=== PATIENT | female | born 1975 | race Two or more races ===

== ENCOUNTER 2025-08-11 17:47 | Inpatient (IN) | payer BC, OTHER ==
[~2025-08-11] VITALS: Ht 157.5 cm; Wt 77.7 kg
[2025-08-11] VITALS (7 sets, daily range): BP systolic 93–103; BP diastolic 48–58; PULSE 71–89; RESP 12–18; TEMP 98.1–98.7; O2SAT 95–100
--- NOTE | 2025-08-11 18:03 | ECG ---
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
[2025-08-11] MEDS: HEPARIN SODIUM (PORCINE) 5000 UNITS/ML 1ML VIAL IV ONE (18:04)
[2025-08-11] MEDS: HEPARIN SODIUM (PORCINE) 5000 UNITS/ML 1ML VIAL ONE (18:07)
[2025-08-11] MEDS: LIDOCAINE 2%HCL (LOCAL ANESTH.) INJ 20ML MDV ONE (18:20)
[2025-08-11] MEDS: fentaNYL CITRATE 100 MCG/2 ML VL ONE (18:20)
[2025-08-11] MEDS: MIDAZOLAM HCL 2MG/2ML 2ml VIAL (1mg/ml) ONE (18:20)
[2025-08-11] MEDS: ANGIOMAX 250 MG VIAL IV ONE (18:20)
[2025-08-11] MEDS: SODIUM CHL 0.9% 50 ML ONE (18:20)
[2025-08-11] MEDS: IODIXANOL 320MG/ML 100ML BTL IV ONE ×2 (18:21→19:12)
[2025-08-11] MEDS: methylPREDNISolone SOD SUCC 125 MG/2 ML VL ONE (18:57)
[2025-08-11] MEDS: FAMOTIDINE (10MG/ML) 2ML VL IV ONE (18:58)
[2025-08-11] MEDS: diphenhdrAMINE HCL 50 MG/1 ML VL ONE (18:58)
[2025-08-11] MEDS: VERAPAMIL 2.5MG/ML INJ 2ML VIAL IV ONE (19:05)
[2025-08-11] MEDS ORDERED: MORPHINE SULFATE INJ 2 MG/ml SYRG IV PRN (19:30)
[2025-08-11] MEDS ORDERED: ZOLPIDEM TARTRATE 5 MG TAB PO PRN (19:30)
[2025-08-11] MEDS ORDERED: ONDANSETRON HCL 4 MG/2 ML VIAL IV PRN (19:30)
[2025-08-11] MEDS ORDERED: NITROGLYCERIN 0.4 MG SL TAB SL PRN ×2 (19:30)
[2025-08-11] MEDS ORDERED: MORPHINE SULFATE 4 MG/ML SYR/VIAL IV PRN (19:30)
[2025-08-11] MEDS ORDERED: LORazepam 0.5 MG TAB PO PRN (19:30)
[2025-08-11] MEDS ORDERED: ACETAMINOPHEN 500 MG TAB or CAP PO PRN (19:30)
--- NOTE | 2025-08-11 19:47 | ED.PDOC ---
History of Present Illness HPI Comments 49-year-old female brought by paramedics from urgent care because she had abnormal cardiac rhythm. She went to urgent care because she has been having diarrhea for the past four days. States that she possibly had something bad to eat which started the symptoms. She denies any chest pain shortness a breath. Denies any past medical history. Denies any other symptoms Chief Complaint: Abnormal LAB's Time Seen by MD: 17:59 Reviewed Notes: Nurses Notes, Medications, Allergies Allergies: Coded Allergies: Ciprofloxacin (Verified Allergy, Mild, 08/11/25) stomach upset Erythromycin (Verified Allergy, Mild, 08/11/25) stomach upset Information Source: Patient, Emergency Med Personnel Mode of Arrival: EMS Severity: Moderate Timing: Days Duration: Since onset Past Medical History PAST MEDICAL HISTORY: Denies Surgical History: Denies all surgeries PSYCHODRAMATIST History: No Pertinent PSYCHODRAMATIST History Social History Smoker: Non-Smoker Alcohol: Denies ETOH Use Drugs: Denies Drug Use Constitutional: denies: chills, diaphoresis, fatigue, fever, malaise, sweats, weakness, others EENTM: denies: blurred vision, double vision, ear bleeding, ear discharge, ear drainage, ear pain, ear ringing, eye pain, eye redness, hearing loss, mouth pain, mouth swelling, nasal discharge, nose bleeding, nose congestion, nose pain, photophobia, tearing, throat pain, throat swelling, voice changes, others Respiratory: denies: cough, hemoptysis, orthopnea, SOB at rest, shortness of breath, SOB with excertion, stridor, wheezing, others Cardiovascular: denies: chest pain, dizzy spells, diaphoresis, Dyspnea on exertion, edema, irregular heart beat, left arm pain, lightheadedness, palpitations, PND, syncope, others Gastrointestinal: reports: diarrhea; denies: abdomen distended, abdominal pain, blood streaked bowels, constipated, dysphagia, difficulty swallowing, hematemes is, melena, nausea, poor appetite, poor fluid intake, rectal bleeding, rectal pain, vomiting, others Genitourinary: denies: abnormal vagina bleeding, burning, dyspareunia, dysuria, flank pain, frequency, hematuria, incontinence, pain, , vagina discharge, urgency, others Neurological: denies: dizziness, fainting, headache, left sided numbness, left sided weakness, numbness, paresthesia, pre-existing deficit, right sided numbness, right sided weakness, seizure, speech problems, tingling, tremors, weakness, others Musculoskeletal: denies: back pain, gout, joint pain, joint swelling, muscle pain, muscle stiffness, neck pain, others Integumetry: denies: bruises, change in color, change in hair/nails, dryness, laceration, lesions, lumps, rash, wounds, others Allergic/Immunocompromised: denies: Difficulty Healing, Frequent Infections, Hives, Itching, others Hematologic/Lymphatic: denies: anemia, blood clots, easy bleeding, easy bruising, swollen glands, others Endocrine: denies: excessive hunger, excessive sweating, excessive thirst, excessive urination, flushing, intolerance to cold, intolerance to heat, un explained weight gain, unexplained weight loss, others Psychiatric: denies: anxiety, bipolar disorder, depression, hopeless, panic disorder, schizophrenia, sleepless, suicidal, others Physical Exam General Appearance: Moderate Distress HEENT: Normal ENT Inspection, Pharynx Normal, TMs Normal Neck: Full Range of Motion, Non-Tender, Normal, Normal Inspection Respiratory: Chest Non-Tender, Lungs Clear, No Accessory Muscle Use, No Respiratory Distress, Normal Breath Sounds Cardiovascular: No Edema, No JVD, No Murmur, No Gallop, Normal Peripheral Pulses, Regular Rate/Rhythm Breast Exam: Deferred Gastrointestinal: No Organomegaly, Non Tender, No Pulsatile Mass, Normal Bowel Sounds, Soft Genitalia: Deferred Pelvic: Deferred Rectal: Deferred Extremities: No calf tenderness, Normal capillary refill, Normal inspection, Normal range of motion, Non-tender, No pedal edema Musculoskeletal : Apperance: Normal 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 Was a procedure done?: No EKG EKG : ST: Inf Differential Dx Considerations may include: STEMI Gastroenteritis X-Ray, Labs, Meds, VS Vital Signs Date Time Temp Pulse Resp B/P (MAP) Pulse Ox O2 Delivery O2 Flow Rate FiO2 08/11/25 17:54 89 08/11/25 17:50 98.5 88 16 122/78 (93) 97 98.5 08/11/25 17:50 Room Air* 0 21 08/11/25 17:48 98.5 88 16 122/78 97 98.5 Lab Test 08/11/25 17:53 Range/Units Troponin I High Sensitivity Pending Current Medications Medications (Trade) Dose Ordered Sig/Dawna Route Start Time Stop Time Status Last Admin Heparin Sodium (Porcine) 5,000 units ONCE ONCE IV 08/11/25 18:15 08/11/25 18:16 DC 08/11/25 18:04 Patient alert. Vitals stable. Cardiac rhythm from the paramedics with a abnormal. Answering questions. EKGs shows changes in the inferior lead. Was given heparin. Cardiology consulted. Was taken to cardiac cath lab radiology technologist. Explained to the patient. Continue monitoring. Time of 1ST Reevaluation: 19:45 Reevaluation 1ST: Unchanged Patient Education/Counseling: Diagnosis, Treatment, Prognosis Family Education/Counseling: No Family Present SEPSIS Sepsis Screen Date sepsis recognized/suspect: Aug 11, 2025 Time Sepsis recognized/suspect: 1805 Recent Procedure: No On Antibiotic Therapy: No Respiratory Rate >20: No Heart Rate >90: No Temp<36 C (96.8 F) or >38.3 C: No SBP <90 or MAP <65 mmHG: No New Acute Mental Status Change: No Is the patient on CPAP, BIPAP,: No Physician Orders Urinalysis (08/11/25 17:57) Cl Left Heart Cath (08/11/25 18:12) Vital Signs Date Time Temp Pulse Resp B/P (MAP) Pulse Ox O2 Delivery O2 Flow Rate FiO2 08/11/25 17:54 89 08/11/25 17:50 98.5 88 16 122/78 (93) 97 98.5 08/11/25 17:50 Room Air* 0 21 08/11/25 17:48 98.5 88 16 122/78 97 98.5 Medications Medications Dose Ordered Sig/Dawna Route Start Time Stop Time Status Last Admin Dose Admin Heparin Sodium (Porcine) 5,000 units ONCE ONCE IV 08/11/25 18:15 08/11/25 18:16 DC 08/11/25 18:04 Departure 1 Departure Time of Disposition: 19:46 Impression: Primary Impression: STEMI (ST elevation myocardial infarction) Qualified Codes: I21.3 - ST elevation (STEMI) myocardial infarction of unspecified site Disposition: 09 ADMITTED INPATIENT Admit to: Med Surg Condition: Guarded Critical Care Note Critical Care Time?: Yes (90 min-critical care time only) Stability Stability form required: No Heart Score Heart Score: Heart Score Response (Comments) Value History Highly Suspicious [address]-Deviation 2 Age 45-64 1 Risk Factors No known risk factors 0 Troponin N/A 0 Total 5 YAMILETH CHISHOLM MD Aug 11, 2025 19:47
--- NOTE | 2025-08-11 21:30 | DVHOP ---
DATE OF SURGERY: 08/11/2025 TECHNIQUE PERFORMED: * Ultrasound of the right radial artery. * Management of conscious sedation. * Ultrasound-guided insertion of 6-Tunisian arterial line in the right radial artery. * Left heart catheter. * Left ventriculogram. * [place] selective left and right coronary artery angiography. ASSISTANTS: Assisted by Benjamin Sharpe Brian, Angela and Shannon. DATE OF THIS STUDY PERFORMED: 08/11/2025 on Wednesday, at approximately 6:45 p.m. DESCRIPTION OF PROCEDURE: As follows: The risks and benefits all have been explained to the patient, understood and accepted very well. Right radial area thoroughly cleaned with soap and Betadine, lidocaine was given. A 6-Tunisian arterial line was placed. After doing the ultrasound, the patient received 100 mcg of the nitroglycerin, 2.5 mg of verapamil, 2000 units of heparin in the right radial arterial line. TIG catheter 5-Tunisian 4-0 was passed and left coronary angio done. With the help of similar catheter, we also did the right coronary angiography. With the help of pigtail catheter, complete left heart cath had been done. The left ventriculogram was done in the right anterior oblique view with a total of 20 mL of dye. Post-LV gram, left ventricular angiography had been performed with the help of pull-through technique. Aortic pressure also has been performed. There was no complication and procedure went well. IMPRESSION: As follows: * Normal left main. * Left anterior artery distal one-third region. There is a loop in the left anterior descending artery noted. However, there was no blockage. * The diagonal artery is very large artery arising from mid region of the left anterior descending artery but widely open and normal. * Circumflex and obtuse marginal arteries are moderate size artery and are normal. * Right coronary artery is a very large dominant artery and the right coronary artery is widely open. * Posterior descending artery normal. Posterolateral branch is normal. * Ejection fraction 75% normal. CONCLUSIONS: * No evidence of any occlusive coronary artery disease. * Ejection fraction of 75%. PLAN OF ACTION: Advised to have conservative medical treatment. Martinez Mason MD MP/CEDRIC/ALLA TID: [id number] RECEIPT: [id number] [facility]
--- NOTE | 2025-08-11 23:39 | DVHINCON2 ---
Date of service: Aug 11, 2025 Referring Physician Carlos A Reason for Consultation STEMI History of Present Illness This is a 49 year old female without any significant medical history who was brought in by ambulance from [facility] urgent care due to an abnormal cardiac rhythm Patient endorses diarrhea x 4 days. Patient states that she possibly had something bad to eat which started the symptoms. Per EMS, the patients EKG at [facility] was abnormal and therefore EMS was called. EKGs shows changes in the inferior lead. Code STEMI was called, and I evaluated the patient at bedside within a few minutes. Patient will be emergently taken [facility] and admitted to ICU. Allergies: Coded Allergies: Ciprofloxacin (Verified Allergy, Mild, 08/11/25) stomach upset Erythromycin (Verified Allergy, Mild, 08/11/25) stomach upset Review of Systems Constitutional: denies: chills, diaphoresis, fatigue, fever, malaise, sweats, weakness, others EENTM: denies: blurred vision, double vision, ear bleeding, ear discharge, ear drainage, ear pain, ear ringing, eye pain, eye redness, hearing loss, mouth pain , mouth swelling, nasal discharge, nose bleeding, nose congestion, nose pain, photophobia, tearing, throat pain, throat swelling, voice changes, others Respiratory: denies: cough, hemoptysis, orthopnea, SOB at rest, shortness of breath, SOB with excertion, stridor, wheezing, others Cardiovascular: denies: chest pain, dizzy spells, diaphoresis, Dyspnea on exertion, edema, irregular heart beat, left arm pain, lightheadedness, palpitations, PND, syncope, others Gastrointestinal: reports: diarrhea; denies: abdomen distended, abdominal pain, blood streaked bowels, constipated, dysphagia, difficulty swallowing, hematemesis, melena, nausea, poor appetite, poor fluid intake, rectal bleeding, rectal pain, vomiting, others Genitourinary: denies: abnormal vagina bleeding, burning, dyspareunia, dysuria, flank pain, frequency, hematuria, incontinence, pain, , vagina discharge, urgency, others Neurological: denies: dizziness, fainting, headache, left sided numbness, left sided weakness, numbness, paresthesia, pre-existing deficit, right sided numbness, right sided weakness, seizure, speech problems, tingling, tremors, weakness, others Musculoskeletal: denies: back pain, gout, joint pain, joint swelling, muscle pain, muscle stiffness, neck pain, others Integumetry: denies: bruises, change in color, change in hair/nails, dryness, laceration, lesions, lumps, rash, wounds, others Allergic/Immunocompromised: denies: Difficulty Healing, Frequent Infections, Hives, Itching, others Hematologic/Lymphatic: denies: anemia, blood clots, easy bleeding, easy bruising, swollen glands, others Endocrine: denies: excessive hunger, excessive sweating, excessive thirst, excessive urination, flushing, intolerance to cold, intolerance to heat, unexplained weight gain, unexplained weight loss, others Psychiatric: denies: anxiety, bipolar disorder, depression, hopeless, panic disorder, schizophrenia, sleepless, suicidal, others Vital Signs Vital Signs Date Time Temp Pulse Resp B/P (MAP) Pulse Ox O2 Delivery O2 Flow Rate FiO2 08/11/25 17:54 89 08/11/25 17:50 98.5 16 122/78 (93) 97 98.5 08/11/25 17:50 Room Air* 0 21 Physical Exam GENERAL: Alert and oriented x 3. No acute distress. EYES: PERRL, EOMI. Anicteric. HENT: Moist mucous membranes. LUNGS: Clear to auscultation bilaterally. CARDIOVASCULAR: Regular rate and rhythm. ABDOMEN: Soft, nontender and nondistended. EXTREMITIES: No edema. NEUROLOGIC: No focal neurological deficits. SKIN: Warm, dry. Assessment STEMI. Plan/Recommendation I agree with your ongoing assessment and care of plan. Emergency cardiac cath. The risks and benefits all have been explained to the patient, understood and accepted very well. Echocardiogram. Morphine and Ary for pain management. Nitro SL. Additional plan as per the hospital course. Critical care time of 90 minutes provided to include time spent evaluation of patient at bedside, when appropriate patient/family education for diagnosis, treatment plan, review of pertinent medical information and discussion of care with specialty providers and PCP. Plan discussed with: Patient SERENE KENYON MD Aug 11, 2025 18:30
[2025-08-12] VITALS (9 sets, daily range): BP systolic 95–126; BP diastolic 59–72; PULSE 61–88; RESP 16–20; TEMP 96.7–98.6; O2SAT 96–100
[2025-08-12] MEDS: SODIUM CHL 0.9% 500 ML IV ONE (08:25)
[2025-08-12] MEDS: MILK OF MAGNESIA 30ML SUSP PO ONE (08:25)
[2025-08-12] MEDS: HYDROcodone-ACET 5/325MG TAB PO PRN (11:26)
--- NOTE | 2025-08-12 13:27 | DVHPN2 ---
Reviewed: Care Plan, H&P, Labs, Medications, Previous Orders, Radiology Changes from previous H/P or p: No Changes Objective Vitals Vital Signs Date Time Temp Pulse Resp B/P (MAP) Pulse Ox O2 Delivery O2 Flow Rate FiO2 08/12/25 13:08 97.8 66 20 103/65 (78) 97 97.8 08/12/25 08:02 Room Air* 0 21 Intake/Output Intake and Output 08/12/25 07:00 Intake Total 220 ml Balance 220 ml Intake Oral 220 ml # Voids 2 # Bowel Movements 2 Medications Current Medications Medications Dose Ordered Sig/Dawna Route Start Time Stop Time Status Last Admin Dose Admin Acetaminophen/ Hydrocodone Bitart 1 tab Q4HP PRN PO 08/11/25 19:30 08/12/25 11:26 1 TAB Zolpidem Tartrate 5 mg QHSP PRN PO 08/11/25 19:30 Lorazepam 0.5 mg Q6HP PRN PO 08/11/25 19:30 Ondansetron HCl 4 mg Q4HP PRN IV 08/11/25 19:30 Acetaminophen 500 mg Q6HP PRN PO 08/11/25 19:30 Morphine Sulfate 1 mg Q4HP PRN IV 08/11/25 19:30 Nitroglycerin 0.4 mg Q5MINP PRN SL 08/11/25 19:30 Morphine Sulfate 2 mg Q30M PRN IV 08/11/25 19:30 Laboratory Results Laboratory Tests 08/12/25 05:39 Labs and/or images reviewed: Labs reviewed by me, Image(s) reviewed by me Assessment/Plan Assessment/Plan STEMI with troponin of 6700, treatment per ACS protocol, emergency left heart catheterization by Dr. Mason shows normal coronaries with 75 percent ejection fraction Time spent 36 minutes Plan discussed with: Patient Date of Service: Aug 12, 2025 Billing Provider: MARGARITA RANDLE MD Common Visit Codes: [id number] INP/OBS CARE(HIGH) MARGARITA RANDLE MD Aug 12, 2025 13:27
[2025-08-12 14:51] LABS: Hematocrit 35.7 % (36.0-46.0); Hemoglobin 12.1 g/dL (12.2-16.2); Mean Corpuscular Hemoglobin 29.1 pg (28.0-32.0); Mean Corpuscular Volume 85.6 fL (80.0-100.0); Nucleated Red Blood Cells % 0.0 %
--- NOTE | 2025-08-12 14:51 | DVHSR ---
APPROVED REPORT EXAM: Two-dimensional and M-mode echocardiogram with Doppler and color Doppler. Blood Pressure: 109/[address] Elevation RISK FACTORS Height: 5' 2", Weight: 160 DIMENSIONS LVDd4.3 (3.8-5.7cm)LA (2D)4.0 (1.9-4.0cm)Aortic Root3.3 (2.0-3.7cm) LVDs3.1 (2.5-4.0cm)LA (MM) (1.9-4.0cm)Aortic Cusp Exc1.6 (1.5-2.0cm) EF (%) 55.0 (55-70%)Rt. Atrium3.7 (1.9-4.0cm)Asc. Aorta cm IVSd1.1 (0.7-1.1cm)RV (D) (1.8-2.4cm) PWd0.9 (0.7-1.1cm) Mitral Valve MitralMitral Stenosis E wave1.00m/sMV Mean GR.mmHg A wave1.10m/sMV Peak GR.mmHg E/A ratio0.92D MVAcm2 Aortic Valve Aortic ValveAortic Stenosis V11.00m/Sonia Mean GR.3mmHg V21.10m/Sonia Peak GR.5mmHg LVOT Diameter2.1 (1.8-2.4cm)Doppler AVA3.15cm2 Pulmonic Valve V20.60m/s Conclusion LV EF IS 70% AND IS NORMAL NORMAL VALVES NORMAL RV FUNCTION NO EFFUSION
[2025-08-12 15:08] LABS: Albumin 4.2 g/dL (3.2-4.8); Anion Gap 12 (5-15); BUN/Creatinine Ratio 15.2 (10.0-20.0); Blood Urea Nitrogen 10 mg/dL (9-23); Calcium 8.9 mg/dL (8.7-10.4); Carbon Dioxide 26 mmol/L (20-31); Chloride 104 mmol/L (98-107); Sodium 142 mmol/L (136-145); Total Protein 7.4 g/dL (5.7-8.2); Triglycerides 144 mg/dL (< 150)
[2025-08-12 15:09] LABS: Bilirubin, Total 0.4 mg/dL (0.2-1.0)
[2025-08-12 15:10] LABS: Alanine Aminotransferase 50 U/L (7-40); Alkaline Phosphatase 124 U/L (46-116); Cholesterol 247 mg/dL (< 200); Glucose 110 mg/dL (74-106); HDL Cholesterol 67 mg/dL (40-59); Potassium 3.3 mmol/L (3.5-5.1)
[2025-08-13] VITALS (7 sets, daily range): BP systolic 97–117; BP diastolic 58–76; PULSE 53–85; RESP 18–21; TEMP 97.5–98.2; O2SAT 93–99
--- NOTE | 2025-08-13 00:21 | DVHPN2 ---
Progress Note - Dictate Date Seen: Aug 12, 2025 Medical Necessity Reason Pt with a Central, PICC or Fol: No Subjective Patient was seen and evaluated in follow up. Patient underwent left heart cath, [place] selective left and right coronary artery angiography. There is no evidence of any occlusive coronary artery disease. Ejection fraction of 75%. The patient is advised to have conservative medical treatment. Troponin 4665. Chol 247, LDL 170, HDL 67. Telemetry reviewed. vital signs Vital Sign Date Time Temp Pulse Resp B/P (MAP) Pulse Ox O2 Delivery O2 Flow Rate FiO2 08/12/25 13:08 97.8 66 20 103/65 (78) 97 97.8 08/12/25 08:02 Room Air* 0 21 Total Intake and Output 08/11/25 08/11/25 08/12/25 15:00 23:00 07:00 Intake Total 220 ml Balance 220 ml medications Current Medications Medications Dose Ordered Sig/Dawna Route Start Time Stop Time Status Last Admin Dose Admin Acetaminophen/ Hydrocodone Bitart 1 tab Q4HP PRN PO 08/11/25 19:30 08/12/25 11:26 1 TAB Zolpidem Tartrate 5 mg QHSP PRN PO 08/11/25 19:30 Lorazepam 0.5 mg Q6HP PRN PO 08/11/25 19:30 Ondansetron HCl 4 mg Q4HP PRN IV 08/11/25 19:30 Acetaminophen 500 mg Q6HP PRN PO 08/11/25 19:30 Morphine Sulfate 1 mg Q4HP PRN IV 08/11/25 19:30 Nitroglycerin 0.4 mg Q5MINP PRN SL 08/11/25 19:30 Morphine Sulfate 2 mg Q30M PRN IV 08/11/25 19:30 objective GENERAL: Alert and oriented x 3. No acute distress. EYES: PERRL, EOMI. Anicteric. HENT: Moist mucous membranes. LUNGS: Clear to auscultation bilaterally. CARDIOVASCULAR: Regular rate and rhythm. ABDOMEN: Soft, nontender and nondistended. EXTREMITIES: No edema. NEUROLOGIC: No focal neurological deficits. SKIN: Warm, dry. laboratory and microbiology Laboratory Tests 08/12/25 05:39 Problem List STEMI. Assessment/Plan Continued all current supportive medical care. Echocardiogram. Morphine and [place] for pain management. Nitro SL. Additional plan as per the hospital course. Plan discussed with: Patient SERENE KENYON MD Aug 12, 2025 14:19
[2025-08-13 05:17] LABS: Alanine Aminotransferase 40 U/L (7-40); Albumin 3.8 g/dL (3.2-4.8); Anion Gap 13 (5-15); BUN/Creatinine Ratio 20.8 (10.0-20.0); Blood Urea Nitrogen 15 mg/dL (9-23); Carbon Dioxide 24 mmol/L (20-31); Chloride 106 mmol/L (98-107); Sodium 143 mmol/L (136-145); Total Protein 6.7 g/dL (5.7-8.2)
[2025-08-13 05:18] LABS: Alkaline Phosphatase 117 U/L (46-116); Bilirubin, Total 0.3 mg/dL (0.2-1.0); Calcium 8.4 mg/dL (8.7-10.4); Glucose 107 mg/dL (74-106); Potassium 3.2 mmol/L (3.5-5.1)
--- NOTE | 2025-08-13 13:42 | DVHDS2 ---
Discharge Summary Date of Admission Aug 11, 2025 at 19:28 Date of Discharge: Aug 13, 2025 Admitting Diagnosis Elevated troponin Wounds: Left heart catheterization Labs/Diagnostic Data: Laboratory Results Test 08/13/25 04:05 08/12/25 14:43 08/12/25 01:45 Sodium Level 143 mmol/L (136-145) Potassium Level 3.2 mmol/L (3.5-5.1) Chloride Level 106 mmol/L (98-107) Carbon Dioxide Level 24 mmol/L (20-31) Anion Gap 13 (5-15) Blood Urea Nitrogen 15 mg/dL (9-23) Creatinine 0.72 mg/dL (0.550-1.02) Glomerular Filtration Rate Calc 102 mL/min (>90) BUN/Creatinine Ratio 20.8 (10.0-20.0) Serum Glucose 107 mg/dL (74-106) Calcium Level 8.4 mg/dL (8.7-10.4) Total Bilirubin 0.3 mg/dL (0.2-1.0) Aspartate Amino Transferase (AST) 24 U/L (13-40) Alanine Aminotransferase (ALT) 40 U/L (7-40) Alkaline Phosphatase 117 U/L (46-116) Total Protein 6.7 g/dL (5.7-8.2) Albumin 3.8 g/dL (3.2-4.8) White Blood Count 9.7 10^3/uL (4.4-10.8) Red Blood Count 4.17 10^6/uL (4.0-5.20) Hemoglobin 12.1 g/dL (12.2-16.2) Hematocrit 35.7 % (36.0-46.0) Mean Corpuscular Volume 85.6 fL (80.0-100.0) Mean Corpuscular Hemoglobin 29.1 pg (28.0-32.0) Mean Corpuscular Hemoglobin Concent 34.0 g/dL (32.0-36.0) Red Cell Distribution Width 13.1 % (11.8-14.3) Platelet Count 345 10^3/uL (140-450) Mean Platelet Volume 7.3 fL (6.9-10.8) Neutrophils (%) (Auto) 72.5 % (37.0-80.0) Lymphocytes (%) (Auto) 14.9 % (10.0-50.0) Monocytes (%) (Auto) 12.3 % (0.0-12.0) Eosinophils (%) (Auto) 0.1 % (0.0-7.0) Basophils (%) (Auto) 0.2 % (0.0-2.0) Neutrophils # (Auto) 7.0 10 ^3/uL (1.6-8.6) Lymphocytes # (Auto) 1.4 10 ^3/uL (0.4-5.4) Monocytes # (Auto) 1.2 10 ^3/uL (0-1.3) Eosinophils # (Auto) 0 10 ^3/uL (0-0.8) Basophils # (Auto) 0 10 ^3/uL (0-0.2) Nucleated Red Blood Cells 0.0 % Triglycerides Level 144 mg/dL (< 150) Cholesterol Level 247 mg/dL (< 200) LDL Cholesterol 170 mg/dL (< 100) HDL Cholesterol 67 mg/dL (40-59) Troponin I High Sensitivity 4665 ng/L (</=34) Other Laboratory Tests 08/13/25 04:05 08/12/25 14:43 Brief Hx & Hospital Course: 49-year-old female went to the urgent care for diarrhea of four days' duration after eating some salad . Diagnosed with a possible food poisoning. EKG showed ST elevations and troponin was 6700 patient was transferred to the ER and underwent emergency catheterization by Dr. Mason found to have normal coronaries with 75 percent ejection fraction. Patient feels better being discharged home. C diff studies pending she will follow up with discharge clinic for further care DIA Nichols at bedside Consults/Reason for consult Cardiology Dr. Mason Operations or Procedures Left heart catheterization Condition at Discharge: Fair Final Diagnosis/Problems List STEMI with troponin of 6700, treatment per ACS protocol, emergency left heart catheterization by Dr. Mason shows normal coronaries with 75 percent ejection fraction Diarrhea four days' duration possibly secondary to food poisoning after she ate salad. C diff studies pending. She will follow up with the discharge clinic Discharge Disposition: Home Discharge Instruct/Medications Diet: Cardiac 2g Na,low cholest Activity: Light activity Follow Up/Referral: Follow up with the discharge clinic in one week Follow up with the Cardiology Dr. Richelle Mason in two weeks Medications: none 39 (Time taken for discharge summary 39 minutes) Discharge Statement: "Patient was advised to return to the ER or call 911 if any headaches, dizziness, shortness of breath, chest pain, abdominal pain, bleeding, fevers, or worsening of medical condition. Patient was counseled about treatment plan, medications, possible side effects, patientverbalized understanding. All questions were answered to the best of my ability. This discharge took greater then 30 minutes in planning, reviewing documentation, counseling the patient, and discussing with other team members." ASSESSMENT ASSESSMENT Hospital Course Uneventful Assessment STEMI with troponin of 6700, treatment per ACS protocol, emergency left heart catheterization by Dr. Mason shows normal coronaries with 75 percent ejection fraction Diarrhea four days' duration possibly secondary to food poisoning after she ate salad. C diff studies pending. She will follow up with the discharge clinic Date of Service: Aug 13, 2025 Billing Provider: MARGARITA RANDLE MD Common Visit Codes: [id number]/OBS DISCH DAY >30min MARGARITA RANDLE MD Aug 13, 2025 13:42
[2025-08-13] MEDS ORDERED: LOPERAMIDE HCL 2 MG CAP/TAB PO PRN (14:15)
[2025-08-13 14:45] LABS: Urine Protein, UAD Negative (Negative)
[2025-08-13 15:11] LABS: Amphetamine Screen, Urine Neg (NEGATIVE); Barbiturate Scree,Urine Neg (NEGATIVE); Benzodiazephine Screen, Urine Neg (NEGATIVE); Cannabinoid Screen, Urine Neg (NEGATIVE); Cocaine Screen, Urine Neg (NEGATIVE); Opiate Scree,Urine Neg (NEGATIVE); Phencyclidine Screen, Urine Neg (NEGATIVE)
[2025-08-13] MEDS: SODIUM CHLORIDE 0.9% 1,000 ML IV ONE (15:48)
--- NOTE | 2025-08-14 00:04 | DVHPN2 ---
Progress Note - Dictate Date Seen: Aug 13, 2025 Medical Necessity Reason Pt with a Central, PICC or Fol: No Subjective Patient was seen and evaluated in follow up. Patient has no new complaints at this time. Patient denies any cardiac symptoms. Patient is cardiac stable for discharge. Telemetry reviewed. vital signs Vital Sign Date Time Temp Pulse Resp B/P (MAP) Pulse Ox O2 Delivery O2 Flow Rate FiO2 08/13/25 17:19 98.2 73 20 111/76 (88) 98 98.2 08/13/25 08:00 Room Air* 0 21 Total Intake and Output 08/13/25 08/13/25 08/14/25 15:00 23:00 07:00 Intake Total 1080 ml Balance 1080 ml objective GENERAL: Alert and oriented x 3. No acute distress. EYES: PERRL, EOMI. Anicteric. HENT: Moist mucous membranes. LUNGS: Clear to auscultation bilaterally. CARDIOVASCULAR: Regular rate and rhythm. ABDOMEN: Soft, nontender and nondistended. EXTREMITIES: No edema. NEUROLOGIC: No focal neurological deficits. SKIN: Warm, dry. laboratory and microbiology Laboratory Tests 08/13/25 04:05 08/12/25 14:43 Test 08/13/25 04:05 Range/Units Serum Glucose 107 H 74-106 mg/dL Problem List STEMI. Assessment/Plan Continued all current supportive medical care. Morphine and [place] for pain management. Nitro SL. Additional plan as per the hospital course. Plan discussed with: Patient SERENE KENYON MD Aug 14, 2025 00:04
== END 2025-08-13 18:55 | disposition home or self-care (01) | DRG 282 ==
LOC: EDBD 17:47 → ER 17:47 → OVERFLOW 19:28 → TELE-WESTW 20:40
PROVIDERS: ADMIT Family Medicine; ATTEND Family Medicine
PROC: 03HY32Z Insertion of Monitoring Device into Upper Artery, Percutaneous Approach (ICD-10-PCS; principal; 2025-08-11)
PROC: 4A023N7 Measurement of Cardiac Sampling and Pressure, Left Heart, Percutaneous Approach (ICD-10-PCS; 2025-08-11)
PROC: B211YZZ Fluoroscopy of Multiple Coronary Arteries using Other Contrast (ICD-10-PCS; 2025-08-11)
PROC: B215YZZ Fluoroscopy of Left Heart using Other Contrast (ICD-10-PCS; 2025-08-11)
DX: I21.29 ST elevation (STEMI) myocardial infarction involving other sites (principal); A05.9 Bacterial foodborne intoxication, unspecified; Z88.8 Allergy status to other drugs, medicaments and biological substances
CPT/HCPCS: 36415; 80053; 80061; 80307; 81001; 82565; 84484; 85025; 87493; 93005; 93306; 99152; 99291; 99292; G0378; J2250; J3490; Q9967